=== PATIENT | female | born 1995 | race African-American/Black ===

== ENCOUNTER 2021-06-11 22:49 | Emergency (ER) | payer OTHER ==
[2021-06-11 23:01] VITALS: BP 117/68; PULSE 112; TEMP 98.6; BMI 38.9
== END 2021-06-11 23:56 | disposition home or self-care (01) ==
LOC: JER 22:49
DX: R00.2 Palpitations (principal); T40.715A Adverse effect of cannabis, initial encounter
CPT/HCPCS: 93005; 93010; 99281-25